=== PATIENT | male | born 1975 | race Caucasian/White ===

== ENCOUNTER 2019-11-19 18:27 | Emergency (ER) | payer SELFPAY ==
[2019-11-19 18:41] VITALS: BP 148/99; PULSE 81; RESP 16; TEMP 36.7; O2SAT 96; BMI 32.5
--- NOTE | 2019-11-19 18:44 | XRR_ITS ---
PROCEDURE INFORMATION: Exam: XR Left Knee Exam date and time: 11/19/2019 6:45 PM Age: 44 years old Clinical indication: Injury or trauma; Injury history: Chainsaw to knee; Initial encounter; Wound; Patella or knee; Left; Foreign body involvement not specified; Injury date: Today TECHNIQUE: Imaging protocol: XR Left knee. Views: 3 views. COMPARISON: No relevant prior studies available. FINDINGS: Bones/joints: The bones are intact and in normal alignment. Mild degenerative changes. Well corticated bone along the medial femoral condyle could relate to prior MCL injury. This does not appear acute. Soft tissues: Soft tissue or laceration in the medial left knee. XR/XR knee LT 3V* [id number] IMPRESSION: 1. No acute fracture identified. 2. Medial soft tissue injury.
--- NOTE | 2019-11-19 18:44 | ED_ITS ---
HPI - Extremity Injury (Lower) General: Chief Complaint: Wound/Laceration Stated Complaint: cut knee with chainsaw Time Seen by Provider: 11/19/19 18:40 Source: patient Mode of arrival: ambulatory Limitations: no limitations History of Present Illness: HPI Narrative: Patient was using a chainsaw today prior to arrival and cut his left knee. Patient appears well. Patient appears no acute distress. Patient reports tetanus was up-to-date. Although it was a dog's tetanus vaccine that he had taken 3 years ago. Patient denies any routine medications or chronic medical problems. Review of Systems General: Reports: 10 or more systems reviewed and unremarkable except in HPI and below Skin/Breast: Reports: other (Laceration left knee) [facility] ED PFSH: Social History (Updated 05/01/19 @ 10:55 by Missy Goode LPN) Smoking and tobacco status: current every day smoker smokeless tobacco Alcohol intake: current Physical Exam Const: COMMON NORMALS: no acute distress and patient oriented x3 GENERAL APPEARANCE: cooperative HENMT: COMMON NORMALS: normocephalic and Normal external nose present HEAD & SCALP: normal to inspection and normocephalic NOSE: Normal external nose present MOUTH: Normal oral and palatal mucosa present Eye: GENERAL EYE: appearance normal, both eyes and all related structures Neck/C-Spine: COMMON NORMALS: full ROM Chest: COMMONS NORMALS: normal inspection of the chest Resp: COMMON NORMALS: normal respiratory effort EFFORT & INSPECTION: Yes able to speak in complete sentences Cardio: COMMON NORMALS: regular rate and regular rhythm RATE: regular rate RHYTHM: regular rhythm GI: COMMON NORMALS: non-tender Back/Pelvis: COMMON NORMALS: thoracic and lumbar spine normal to inspection Extremity: COMMON NORMALS: normal to inspection Neuro: COMMON NORMALS: patient oriented x3 and moves all extremities Psych: COMMON NORMALS: mental status grossly normal and cooperative Skin: NARRATIVE SKIN EXAM: 6 cm laceration to the lateral left knee. Examination of the wound notes no foreign body. Irrigation noted no deep internal structure abnormality. Procedures Laceration Laceration 1: Site: lower extremity Side (If applicable): left Size (cm): 6 Description: linear Depth: simple, single layer Local Anesthetic: lidocaine 1% and with epi Amount of anesthesia used (mL): 10 Pre-repair: wound explored and irrigated extensively Skin layer closed with: nylon Size (cm): 3-0 (4 mattress,) and 4-0 (18 simple) Number of sutures: 22 Technique: simple, interrupted and horizontal mattress Course Vital Signs: Vital signs: Vital Signs Temperature 98.0 F 11/19/19 18:41 Pulse Rate 85 11/19/19 19:00 Respiratory Rate 14 11/19/19 19:00 Blood Pressure 157/86 11/19/19 19:00 Pulse Oximetry 96 11/19/19 19:00 MDM - Extremity Injury (Lower) MDM Narrative: Medical decision making narrative: Medical decision. Patient comes in for injury to the left knee. Patient has a 6 cm laceration to the left knee involving multiple layers of skin. Patient had been using a chainsaw and cut his left knee. Patient is weightbearing has good range of motion of the knee. Differential diagnosis includes but not limited to foreign body, tendon injury, bony injury, laceration, need for prophylaxis tetanus. X-ray noted no significant bony injury although there may be a small chip there. No obvious foreign body was noted in the wound. Wound was irrigated thoroughly with saline approximately 2 L. Deep wound was closed with 4 horizontal mattress sutures to approximate the wound upper layers. 18 simple interrupted sutures were used to close top. Patient tolerated procedure well. Reviewed post care instructions. Patient reported understanding. Discharge Plan Discharge Patient Disposition: Home Clinical Impression: Laceration Injury of knee, left Qualifiers: Encounter type: initial encounter Qualified Code(s): S89.92XA - Unspecified injury of left lower leg, initial encounter Condition: Stable Prescriptions: New cephalexin 500 mg capsule 500 mg PO Q12H 10 Days Qty: 20 RF: 0 No Action azithromycin 250 mg tablet See Rx Instructions PO .COMPLEX Qty: 6 RF: 0 Discharge Orders: Discharge Order (Routine); Ordered 11/19/19 Ordered By: Erich Linares Discharge Diet: Usual diet Discharge Activity: Increase activity as tolerated Patient Instructions: Laceration (ED) Activity Restrictions/Additional Instructions: Keep wound clean and dry. Change dressing daily. Take antibiotics as directed. Follow-up with primary care in 1 week for recheck. Sutures out in 10 to 14 days. Return to the emergency department for new concerns. Coding Level of Care Code ED [employer] for Irvin Ann Exam Comprehensive
[2019-11-19 19:00] VITALS: BP 157/86; PULSE 85; RESP 14; O2SAT 96
[2019-11-19] MEDS: cephALEXin 500 mg Capsule PO (19:03)
[2019-11-19] MEDS: tetanus-dipt-pertussis 0.5 mL SDV IM (19:53)
[2019-11-19 19:54] VITALS: BP 145/88; PULSE 79; RESP 14; O2SAT 96
== END 2019-11-19 20:09 | disposition home or self-care (01) ==
PROVIDERS: Emergency Provider Nurse Practitioner Family
DX: S81.012A Laceration without foreign body, left knee, initial encounter (principal); W29.3XXA Contact with powered garden and outdoor hand tools and machinery, initial encounter; F17.220 Nicotine dependence, chewing tobacco, uncomplicated; Z23 Encounter for immunization
CPT/HCPCS: 12002; 12345; 73562; 90471; 90715; 99282; 99283

== ENCOUNTER → 2020-09-20 11:52 | Outpatient (BNVA) | payer SELFPAY | PROVIDERS: Visit Provider Emergency Medicine | DX: Z20.822 Contact with and (suspected) exposure to COVID-19 (principal) | CPT/HCPCS: 87635 ==